=== PATIENT | female | born 1985 | race Caucasian/White ===

== ENCOUNTER 2024-06-08 09:07 | Outpatient (CLI) | payer MEDICAID | END 2024-06-08 23:59 | disposition home or self-care (01) | LOC: MRI02 09:07 | PROVIDERS: ATTEND Pediatrics Sports Medicine | DX: M75.42 Impingement syndrome of left shoulder (principal); M75.52 Bursitis of left shoulder; M75.32 Calcific tendinitis of left shoulder; M25.512 Pain in left shoulder; M75.41 Impingement syndrome of right shoulder; M75.31 Calcific tendinitis of right shoulder; M46.1 Sacroiliitis, not elsewhere classified | CPT/HCPCS: 73221 ==